=== PATIENT | male | born 1975 | race Caucasian/White ===

== ENCOUNTER 2021-04-21 16:59 | Emergency (ER) | payer BC, SELFPAY ==
--- NOTE | ~2021-04-21 | XR_ITS ---
EXAMINATION: XR hand RT min 3V EXAM DATE: 04/21/2021 17:48 INDICATION: Initial encounter following injury, with pain of the right hand, crushed. TECHNIQUE: Right hand frontal, lateral and oblique projections obtained and reviewed. There is no pr ior study for comparison. FINDINGS: Acute closed posttraumatic nondisplaced right 5th metacarpal shaft fracture. There is overl kevin soft tissue swelling. No suspicious findings. IMPRESSION: Acute nondisplaced right metacarpal shaft fracture. Reviewed, dictated and finalized at location A.
--- NOTE | ~2021-04-21 | XR_ITS ---
EXAMINATION: XR elbow RT min 3V EXAM DATE: 04/21/2021 17:48 INDICATION: Injury, fell 4 weeks ago. TECHNIQUE: Right elbow frontal, lateral with flexion, and oblique projections obtained and reviewed. There is no prior study for comparison. FINDINGS: Right elbow anterior humeral line intact. There are no acute fractures or dislocations maryan ntified. No periosteal reaction to suggest subacute fracture. There is no subcutaneous gas. The soft tissue is unremarkable. There are no radiopaque foreign bodies. IMPRESSION: 1. Unremarkable XR elbow RT min 3V exam. Reviewed, dictated and finalized at location A.
[2021-04-21 17:21] VITALS: BP 155/89; PULSE 73; RESP 18; TEMP 36.8; O2SAT 98
--- NOTE | 2021-04-21 18:22 | ED.UPPEXIN ---
HPI - Extremity Injury (Upper) General Chief Complaint: Extremity Injury, Upper Stated Complaint: hand and elbow pain/injury Time Seen by Provider: 04/21/21 17:31 Source: patient Mode of arrival: ambulatory Limitations: no limitations History of Present Illness HPI narrative: This is a 45-year-old male that presents to the emergency department for right hand pain after an injury yesterday. Reports he got his hand caught between 2 pallets at work briefly. Reports since he has had pain and swelling in the right hand especially about the fifth metacarpal. Also reports an injury to the left elbow 4 weeks ago. Reports he missed the last step on his porch. This caused him to fall forward and catch himself with his hands. Since then he has been having right elbow pain. Worse with movement and relieved with rest. Denies hitting his head, loss of consciousness, decreased range of motion or numbness. Related Data Allergies Allergy/AdvReac Type Severity Reaction Status Date / Time No Known Allergies Allergy Mild Unverified 03/19/04 23:27 Review of Systems Review of Systems: Narrative: CONSTITUTIONAL: Denies fever MUSCULOSKELETAL: Reports joint pain, and myalgia. NEUROLOGIC: Denies numbness, or weakness. All systems reviewed & are unremarkable except as noted in HPI and below PMFSH Past Medical History Medical History (Updated 04/21/21 @ 18:25 by Halle Rivas PA-C) No active medical problems Social History Social History (Updated 04/21/21 @ 18:23 by Halle Rivas PA-C) Substance use: never Exam Narrative: Exam Narrative: GENERAL: Well-appearing, well-nourished, and in no acute distress. HEAD: Normocephalic, atraumatic. EYES: EOMI. EXTREMITIES: Normal range of motion. Mild edema about the right fifth metacarpal, tender to palpation. Normal DP pulses. Normal sensation SKIN: Warm, dry, no rash. NEURO: No focal deficits. Alert and oriented x3. PSYCH: Normal mood and affect Course Vital Signs Vital signs: Vital Signs Temperature 98.2 F 04/21/21 17:21 Pulse Rate 73 04/21/21 17:21 Respiratory Rate 18 04/21/21 17:21 Blood Pressure 155/89 H 04/21/21 17:21 Pulse Oximetry 98 04/21/21 17:21 Temperature 98.2 F 04/21/21 17:21 Pulse Rate 73 04/21/21 17:21 Respiratory Rate 18 04/21/21 17:21 Blood Pressure 155/89 H 04/21/21 17:21 Pulse Oximetry 98 04/21/21 17:21 Procedures Orthopedic Splinting/Casting Injury #1: Splinting/Casting Date: 04/21/21 Splinting/Casting Time: 18:26 Side: right Upper Extremity Immobilizer: ulnar gutter Splint: customized in ED OCL: ulnar gutter Pre-Procedure Neuro Vascular Exam: normal Post-Procedure Neuro Vascular Exam: normal MDM - Extremity Injury (Upper) MDM Narrative Medical decision making narrative: Patient presents the emergency department for right hand pain after an injury yesterday. Also noting right elbow pain after an injury a couple of weeks ago. Patient is neurovascularly intact. Right elbow x-rays without acute osseous abnormalities. Right hand x-ray shows an acute nondisplaced right fifth metacarpal shaft fracture. Patient placed in an ulnar gutter. Will be given follow-up with hand surgery. Patient reports he does not want any prescribed pain medication at this time. He was given warnings to return to the ER Imaging Data Radiologist's impression: ITS Impressions Hand X-Ray 04/21/21 17:59 IMPRESSION: Acute nondisplaced right metacarpal shaft fracture. Elbow X-Ray 04/21/21 18:00 IMPRESSION: 1. Unremarkable XR elbow RT min 3V exam. Critical Care Time Critical Care Time Critical Care Time: No Discharge Plan Discharge Clinical Impression: Closed fracture of shaft of fifth metacarpal bone of right hand Qualifiers: Encounter type: initial encounter Fracture alignment: nondisplaced Qualified Code(s): S62.356A - Nondisplaced fracture of shaft
[2021-04-21 19:00] VITALS: BP 140/78; PULSE 70; RESP 18; O2SAT 99
== END 2021-04-21 19:00 | disposition home or self-care (01) ==
PROVIDERS: Emergency Provider Emergency Medicine
DX: S62.356A Nondisplaced fracture of shaft of fifth metacarpal bone, right hand, initial encounter for closed fracture (principal); W23.0XXA Caught, crushed, jammed, or pinched between moving objects, initial encounter
CPT/HCPCS: 29125; 73080; 73130; 99284

== ENCOUNTER 2022-12-18 07:45 | Emergency (ER) | payer BC, SELFPAY ==
--- NOTE | ~2022-12-18 | XR_ITS ---
EXAMINATION: XR shoulder RT min 2V DATE: 12/18/2022 08:18 INDICATION: 3 weeks of nontraumatic posterior right shoulder TECHNIQUE: AP internally and externally rotated, AP oblique externally rotated and transscapular Y vi ews of the right shoulder were obtained. COMPARISON: None FINDINGS: Normal alignment. No fracture. Glenohumeral joint is normal. Mild acromioclavicular osteoarthritis. Soft tissues are unremarkable. Visualized portion of the right lung are clear. IMPRESSION: Mild right acromioclavicular osteoarthritis. Reviewed, dictated and finalized at location A. OGIST PHYSICIAN
[2022-12-18 07:48] VITALS: BP 151/88; PULSE 75; RESP 18; TEMP 36.6; O2SAT 100
--- NOTE | 2022-12-18 08:07 | ED.GENADULT ---
HPI - General Adult General Chief complaint: Extremity Problem,Nontraumatic Stated complaint: R SHOULDER PAIN [id number] Time Seen by Provider: 12/18/22 07:48 History of Present Illness HPI narrative: 47-year-old male presenting to the emergency department for evaluation of right shoulder pain that has been ongoing for the past few weeks. Patient denies any specific incident of injury. Patient states last week he did take some ibuprofen but has not taken any since. Patient did not feel he was having significant improvement with the ibuprofen. Patient reports the pain is worsened with range of motion. Patient does have healing blisters on the posterior right shoulder from using a heating pad that was too hot. Related Data Allergies Allergy/AdvReac Type Severity Reaction Status Date / Time No Known Allergies Allergy Mild Verified 12/18/22 07:50 Review of Systems Review of Systems: All systems reviewed & are unremarkable except as noted in HPI and below PMFSH Past Medical History Medical History (Updated 12/18/22 @ 09:27 by Jalen Morocho MD) No active medical problems Social History Social History (Updated 04/21/21 @ 18:23 by Halle Rivas PA-C) Substance use: never Exam Narrative: APPEARANCE: Well appearing, no pain, no distress, well-nourished. HEAD: normocephalic, atraumatic. EYES: PERRLA/EOMI, conjunctivae clear. NECK: Supple. No adenopathy, no masses. RESPIRATORY: Airway patent, respirations nonlabored. Clear to auscultation bilaterally, no rales, rhonchi, wheezing. CARDIOVASCULAR: Regular rate and rhythm without murmurs rubs or gallops. ABDOMINAL: Soft, nontender, nondistended, normal bowel sounds MUSCULOSKELETAL: Tenderness to palpation of anterior shoulder, pain with range of motion of the right shoulder. No deformity, no crepitus NEURO: Alert. Cranial nerves II through XII intact. Good gait. Good coordination SKIN: 2 healing blisters on posterior right shoulder. No evidence of infection. Course Course Emergency Course: 47-year-old male presenting to the ED for persistent right shoulder pain. Patient denies any significant improvement with treatment with Toradol and Flexeril. X-rays show osteoarthritis. No fracture or dislocation. Patient is neurovascular intact. Patient was updated on the plan for treatment at home. Patient was provided a sling for comfort and encouraged to have close follow-up with her care physician. Patient was also told that he may need an outpatient MRI to better evaluate for rotator cuff injury. Patient was comfortable with the plan for discharge and close follow-up. Vital Signs Vital signs: Vital Signs Temperature 97.8 F 12/18/22 07:48 Pulse Rate 75 12/18/22 07:48 Respiratory Rate 18 12/18/22 07:48 Blood Pressure 151/88 H 12/18/22 07:48 Pulse Oximetry 100 12/18/22 07:48 Oxygen Delivery Room Air 12/18/22 07:48 Temperature 97.8 F 12/18/22 07:48 Pulse Rate 79 12/18/22 09:42 Respiratory Rate 18 12/18/22 09:42 Blood Pressure 123/80 12/18/22 09:42 Pulse Oximetry 99 12/18/22 09:42 Oxygen Delivery Room Air 12/18/22 07:48 Medical Decision Making Vital Signs Vital Signs: Vital Signs Temperature 97.8 F 12/18/22 07:48 Pulse Rate 75 12/18/22 07:48 Respiratory Rate 18 12/18/22 07:48 Blood Pressure 151/88 H 12/18/22 07:48 Pulse Oximetry 100 12/18/22 07:48 Oxygen Delivery Room Air 12/18/22 07:48 Temperature 97.8 F 12/18/22 07:48 Pulse Rate 79 12/18/22 09:42 Respiratory Rate 18 12/18/22 09:42 Blood Pressure 123/80 12/18/22 09:42 Pulse Oximetry 99 12/18/22 09:42 Oxygen Delivery Room Air 12/18/22 07:48 Imaging Data Radiologist's impression: Impressions Shoulder X-Ray 12/18/22 08:34 IMPRESSION: Mild right acromioclavicular osteoarthritis. Discharge Plan Discharge Clinical Impression: Acute shoulder pain Qualifiers: Laterality: right Qualified Code(s): M25.
[2022-12-18] MEDS: CYCLOBENZAPRINE HCL 10 MG TABLET PO (08:48)
[2022-12-18] MEDS: KETOROLAC 30 MG/ML VIAL (*BKC) IM (08:48)
[2022-12-18 09:42] VITALS: BP 123/80; PULSE 79; RESP 18; O2SAT 99
== END 2022-12-18 09:45 | disposition home or self-care (01) ==
PROVIDERS: Emergency Provider Emergency Medicine
DX: M25.511 Pain in right shoulder (principal)
CPT/HCPCS: 73030; 96372; 99283; A4565; A9270; J1885